=== PATIENT | female | born 1965 | race Asian ===

== ENCOUNTER 2016-10-17 09:05 | Emergency (ER) | payer BC ==
[~2016-10-17] VITALS: Ht 157.5 cm; Wt 47.6 kg
[2016-10-17] MEDS ORDERED: NKM (09:22)
[2016-10-17 09:43] VITALS: BP 114/70
[2016-10-17] MEDS ORDERED: Acetaminophen 500mg (ES) tab ORAL ONE (11:15)
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
[2016-10-17] MEDS ORDERED: CYCLOBENZAPRINE10 MG ORAL (11:36)
[2016-10-17] MEDS ORDERED: IBUPROFEN600 MG ORAL (11:36)
[2016-10-17 11:40] VITALS: BP 120/70
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
== END 2016-10-17 11:43 | disposition home or self-care (01) ==
LOC: EMR 10:05
DX: S16.1XXA Strain of muscle, fascia and tendon at neck level, initial encounter (principal); S13.4XXA Sprain of ligaments of cervical spine, initial encounter; V43.52XA Car driver injured in collision with other type car in traffic accident, initial encounter; Y92.410 Unspecified street and highway as the place of occurrence of the external cause; Y99.8 Other external cause status
CPT/HCPCS: 72052; 99283